=== PATIENT | female | born 1955 | race Native Hawaiian/Other Pacific Islander ===

== ENCOUNTER 2016-12-05 14:30 | Outpatient (CLI) | payer BC | END 2016-12-05 15:30 | disposition home or self-care (01) | LOC: RAD 14:30 | DX: M54.42 Lumbago with sciatica, left side (principal); R06.02 Shortness of breath ==

== ENCOUNTER 2016-12-13 12:23 | Observation (INO) | payer BC ==
[2016-12-13] VITALS (11 sets, daily range): BP systolic 112–130; BP diastolic 62–78; TEMP 97.8–98.7; Ht 160 cm; Wt 75.4 kg
[~2016-12-13] VITALS: Ht 160 cm; Wt 75.4 kg
[2016-12-13 13:26] LABS: PLATELET COUNT 163 K/uL (152-353)
[2016-12-13 13:49] LABS: POTASSIUM 3.7 mmol/L (3.6-5.2); SODIUM 140 mmol/L (136-145)
[2016-12-13 13:51] LABS: PARTIAL THROMBOPLASTIN TIME 20.1 SECONDS (24.5-33.6)
[2016-12-13] MEDS ORDERED: CLARITIN10 MG PO (15:54)
[2016-12-13] MEDS ORDERED: OMEPRAZOLE10 MG OR (15:56)
[2016-12-13] MEDS ORDERED: CHOLESTYRAM4 G1 OR (15:57)
[2016-12-13] MEDS ORDERED: GABA300C2 PO (15:58)
[2016-12-13] MEDS ORDERED: LEVO0.1T6 PO (15:59)
--- NOTE | 2016-12-13 16:35 | NUR ---
Pt. ADMITTED TO ROOM [address] LEES C/O CHEST PAIN X1 MONTH OFF AND AND ON. NO RELIEF X1 WEEK. PAIN RADIATES TO BACK. BECOMES WORST WHEN R ARM IS LIFTED.
[2016-12-14] VITALS: BP 129/73; TEMP 98.2
[2016-12-14 04:00] VITALS: BP 107/63; TEMP 98.2
--- NOTE | 2016-12-14 04:06 | NUR ---
12/14/16 0200: REPORT RECEIVED FROM GRIS GOMEZ RN.
[2016-12-14 05:12] LABS: PLATELET COUNT 156 K/uL (152-353)
[2016-12-14 05:20] LABS: POTASSIUM 4.2 mmol/L (3.6-5.2); SODIUM 138 mmol/L (136-145)
[2016-12-14 08:00] VITALS: BP 99/58; TEMP 98.9
[2016-12-14 12:00] VITALS: BP 119/66; TEMP 98
== END 2016-12-14 16:00 | disposition home or self-care (01) ==
LOC: ED 12:23 → MED/SURG 14:50
PROVIDERS: Emergency Medicine; ADMIT Emergency Medicine
DX: M94.0 Chondrocostal junction syndrome [Tietze] (principal); R07.89 Other chest pain; E03.8 Other specified hypothyroidism
CPT/HCPCS: 36415; 80048; 80053; 82550; 83880; 84484; 85027; 85610; 85730; 86318; 93005; 96372; 96374; 99220; 99284; G0378; J1650; J1885; J2270; J2360

== ENCOUNTER 2017-11-20 11:16 | Outpatient (CLI) | payer BC ==
[~2017-11-20 11:16] MED LIST: CHOLESTYRAM4 G1 OR; CLARITIN10 MG PO; GABA300C2 PO; LEVO0.1T6 PO; OMEPRAZOLE10 MG OR
== END 2017-11-20 20:08 | disposition home or self-care (01) ==
LOC: MAMMO 11:16
DX: Z12.31 Encounter for screening mammogram for malignant neoplasm of breast (principal)

== ENCOUNTER 2017-12-31 11:12 | Day surgery (SDC) | payer BC ==
[2017-12-31 12:59] LABS: PLATELET COUNT 187 K/uL (152-353)
[2017-12-31 13:12] LABS: POTASSIUM 3.8 mmol/L (3.6-5.2)
== END 2017-12-31 16:36 | disposition home or self-care (01) ==
LOC: OR 11:12
PROVIDERS: Internal Medicine Gastroenterology
PROC: 0DBN8ZX Excision of Sigmoid Colon, Via Natural or Artificial Opening Endoscopic, Diagnostic (ICD-10-PCS; principal; 2017-12-31)
DX: K63.5 Polyp of colon (principal); K64.8 Other hemorrhoids; Z86.010 Personal history of colon polyps; Z12.11 Encounter for screening for malignant neoplasm of colon
CPT/HCPCS: 80053; 85027; J2001; J2250; J2704

== ENCOUNTER 2018-11-09 14:52 | Outpatient (CLI) | payer OTHER | END 2018-11-09 20:03 | disposition home or self-care (01) | LOC: US 14:52 | DX: E03.2 Hypothyroidism due to medicaments and other exogenous substances (principal) ==